=== PATIENT | male | born 1980 | race Caucasian/White ===

== ENCOUNTER → 2020-08-05 | Outpatient (CLI) | payer BC | LOC: CT 10:37 | DX: R10.31 Right lower quadrant pain (principal) | CPT/HCPCS: Q9967 ==

== ENCOUNTER → 2020-11-10 | Outpatient (CLI) | payer BC | LOC: US 15:15 | DX: N50.811 Right testicular pain (principal); I86.1 Scrotal varices | CPT/HCPCS: 76870 ==